=== PATIENT | male | born 2000 | race African-American/Black ===

== ENCOUNTER 2023-07-01 01:30 | Emergency (ER) | payer SELFPAY ==
[2023-07-01] MEDS: Amoxicillin 500 MG Cap PO ONE (01:53)
== END 2023-07-01 01:56 | disposition home or self-care (01) ==
LOC: VM.ED 01:30
DX: J03.90 Acute tonsillitis, unspecified (principal); Z79.899 Other long term (current) drug therapy
CPT/HCPCS: 99282; A9270

== ENCOUNTER 2023-12-23 04:00 | Emergency (ER) | payer OTHER ==
[2023-12-23 04:10] VITALS: BP 131/77; PULSE 77
== END 2023-12-23 04:35 | disposition home or self-care (01) ==
LOC: VM.ED 04:00
DX: J02.9 Acute pharyngitis, unspecified (principal)
CPT/HCPCS: 99282